=== PATIENT | female | born 1995 | race Caucasian/White ===

== ENCOUNTER 2016-10-23 18:10 | Emergency (ER) | payer SELFPAY ==
[~2016-10-23] VITALS: Ht 162.6 cm; Wt 76.7 kg
[2016-10-23 18:55] VITALS: BP 118/80
--- NOTE | 2016-10-23 20:06 | NUR ---
Patient ambulated to bed 08.
--- NOTE | 2016-10-23 20:10 | NUR ---
C/O ABSCESS TO LEFT LABIA X 3 DAYS. PAIN SCALE 9/10. ERMS MADE AWARE.
--- NOTE | 2016-10-23 21:24 | NUR ---
Dr. Sher evaluating patient at bedside.
[2016-10-23] MEDS ORDERED: HYDROcodone/APAP 10/325 MG 1 TAB TAB PO STA (21:31)
[2016-10-23] MEDS ORDERED: LIDOCAINE 1% 500 MG/50 ML VIAL INJ ONE (21:35)
--- NOTE | 2016-10-23 21:42 | NUR ---
DR. CLEMENT REEVALUATING PT.
[2016-10-23] MEDS ORDERED: ONDANSETRON 4 MG ODT PO ONE (22:00)
--- NOTE | 2016-10-23 22:13 | NUR ---
DR. CLEMENT AT BEDSIDE FOR I&D. EDDIE IBARRA AT BEDSIDE.
[2016-10-23 22:40] VITALS: BP 118/85
--- NOTE | 2016-10-23 22:40 | NUR ---
Patient discharged with v/s stable. Written and verbal after care instructions given and explained. Patient alert, oriented and verbalized understanding of instructions. Ambulatory with steady gait. All questions addressed prior to discharge. ID band removed. Patient advised to follow up with PMD. Rx of CLINDAMYCIN HYDROCHLORIDE 300MG CAPSULE, 1 CAP ORALLY, 3 TIMES A DAY BY MOUTH given. Patient educated on indication of medication including possible reaction and side effects. Opportunity to ask questions provided and answered.
== END 2016-10-23 22:40 | disposition home or self-care (01) ==
LOC: MED 18:10
DX: L02.214 Cutaneous abscess of groin (principal); Z88.1 Allergy status to other antibiotic agents
CPT/HCPCS: 10060; 99283; J2001